=== PATIENT | female | born 1960 | race Caucasian/White ===

== ENCOUNTER 2016-11-13 09:08 | Day surgery (SDC) | payer OTHER ==
[2016-11-13] MEDS ORDERED: ACETAMINOPHEN 325 MG TABLET (FP) PO PRN (09:30)
[2016-11-13] MEDS ORDERED: FLURBIPROFEN 0.03% OPHTH SOLN 2.5 ML BOTTLE ONE (09:41)
[2016-11-13] MEDS ORDERED: PHENYLEPHRINE 2.5% OPHTH SOLN 15 ML BOTTLE ONE (09:42)
[2016-11-13] MEDS ORDERED: CYCLOPENTOLATE HCL 1% OPHTH SOLN 2 ML BOTTLE ONE (09:42)
[2016-11-13] MEDS ORDERED: TROPICAMIDE 1% OPHTH SOLN 15 ML BOTTLE ONE (09:42)
[2016-11-13] MEDS ORDERED: GENTAMICIN SULFATE 0.3% OPHTHALMIC (EYE DROPS) 5ML BOTTLE ONE (09:42)
[2016-11-13 10:09] VITALS: BMI 31.0
[2016-11-13] MEDS ORDERED: MIDAZOLAM HCL 2 MG/2 ML SINGLE DOSE VIAL ONE (10:52)
[2016-11-13] MEDS ORDERED: LIDOCAINE HCL/PF 2% SDV 5ML VIAL ONE (11:04)
[2016-11-13] MEDS ORDERED: LIDOCAINE HCL 2% JELLY 10 ML CARTRIDGE ONE (11:05)
[2016-11-13] MEDS ORDERED: BUPIVACAINE HCL/PF 0.5% (5MG/ML) 10 ML VIAL ONE (11:05)
[2016-11-13] MEDS ORDERED: POVIDONE-IODINE 5% OPHTHALMIC PREP 30 ML SOLUTION ONE (11:06)
[2016-11-13] MEDS ORDERED: PROPOFOL 20 ML ONE (11:24)
[2016-11-13] MEDS ORDERED: ACETYLCHOLINE 1:100 INTRA-OCUL 20 MG/2 ML KIT ONE (11:26)
[2016-11-13 12:31] VITALS: TEMP 98.3
[2016-11-13 13:13] VITALS: BP 150/83; PULSE 74
--- NOTE | 2016-11-13 18:29 | OP ---
DATE OF OPERATION: 11/13/2016 TITLE OF PROCEDURE: Planned extracapsular cataract extraction, phacoemulsification, insertion of posterior chamber lens implant, right eye. SURGEON: Vik Garnett M.D. [employer]: Vik Garnett M.D. COMPLICATIONS: None. PREOPERATIVE DIAGNOSIS: Cataract right eye. POSTOPERATIVE DIAGNOSIS: Cataract, right eye. ANESTHESIOLOGIST: Girma Edouard M.D. FINDINGS OF PROCEDURE: After the peribulbar block was given to the right eye in the operating room, the patient was prepped and draped in the usual manner to expose the right eye. Lid speculum was inserted after Tegaderm strips were placed on the lashes, and the microscope brought into position over the eye. Small incisions were made temporally, and then capsulorrhexis was performed under Viscoat without complication followed by hydrodissection followed by phacoemulsification of the entire nucleus in approximately 1-1/2 minute's time, and followed by cortical material with IA without complication, leaving intact posterior capsule and a red reflex present. Provisc was injected into the posterior chamber to deep in the posterior capsule, and the implant was inspected and found to be free of defects or flaws. Folded, placed into the Provisc filled cartridge, and the cartridge placed in the injector, and the implant was injected into the posterior chamber and nestled into place with a Sinskey hook, and the Provisc was aspirated out, replaced with Miochol, Miostat, and BSS, through small incisions 2 in number were then closed with saline injections into the cornea, and the wound was checked for leakage, none was found, and the intraocular pressure was normotensive. At this point, the implant was fixated, and the capsular bag centrally located with a round pupil intact posterior capsule and a red reflex present. Topical Betoptic S and Maxitrol ophthalmic suspensions were placed as was bacitracin, polymyxin B, ophthalmic ointment, and then the Tegaderm strips and the lid speculum were removed from the lids, the lids were closed, and a patch and shield placed on the eye. The patient was then discharged from the operating room into the recovery area in good condition, having tolerated the procedure well. Ramirez [id number]
== END 2016-11-13 13:00 | disposition home or self-care (01) ==
LOC: FASU 09:08
PROVIDERS: ATTEND Ophthalmology
PROC: 08RJ3JZ Replacement of Right Lens with Synthetic Substitute, Percutaneous Approach (ICD-10-PCS; principal; 2016-11-13 11:40)
DX: H26.8 Other specified cataract (principal)

== ENCOUNTER 2017-01-29 09:27 | Day surgery (SDC) | payer OTHER ==
[2017-01-22 10:22] VITALS: BMI 30.8
[2017-01-29] MEDS: PHENYLEPHRINE 2.5% OPHTH SOLN 15 ML BOTTLE ONE ×5 (10:10→10:30)
[2017-01-29] MEDS: CYCLOPENTOLATE HCL 1% OPHTH SOLN 2 ML BOTTLE ONE ×5 (10:10→10:30)
[2017-01-29] MEDS: TROPICAMIDE 1% OPHTH SOLN 15 ML BOTTLE ONE ×5 (10:10→10:30)
[2017-01-29] MEDS: FLURBIPROFEN 0.03% OPHTH SOLN 2.5 ML BOTTLE ONE ×5 (10:10→10:30)
[2017-01-29] MEDS: GENTAMICIN SULFATE 0.3% OPHTHALMIC (EYE DROPS) 5ML BOTTLE ONE ×5 (10:10→10:30)
[2017-01-29 12:15] VITALS: TEMP 98
[2017-01-29] MEDS ORDERED: ACETAMINOPHEN 325 MG TABLET (FP) PO PRN (12:21)
[2017-01-29 13:00] VITALS: BP 140/80; PULSE 64
--- NOTE | 2017-01-29 13:00 | OP ---
DATE OF OPERATION: 01/29/2017 PROCEDURE: Planned extracapsular cataract extraction, phacoemulsification, insertion of posterior chamber lens implant, left eye. SURGEON: Vik Georges MD ROVING HAULER SURGEON: Vik Georges MD COMPLICATIONS: None. PREOPERATIVE DIAGNOSIS: Cataract, left eye. POSTOPERATIVE DIAGNOSIS: Cataract, left eye. ANESTHESIOLOGIST: Leroy Arita MD FINDINGS AND PROCEDURES: After successful peribulbar anesthesia was given to the patient in the OR, patient was prepped in the usual manner, exposed the left eye. The lid speculum was inserted after Tegaderm strips were inserted, and the microscope brought into position over the left eye. Superior fornix-based flap was then fashioned for 10 mm using Emiliano scissors and 0.12 forceps, and hemostasis achieved with electrocautery. A limbal groove was fashioned for 3 mm with the crescent blade dissecting anterior into clear cornea. A 3-mm blade was used to enter the anterior chamber. Then, under Viscoat, a 360-degree anterior capsulotomy was performed and the leaflet removed from the eye. Phacoemulsification with a very soft nucleus was done in approximately 1.5 minutes time followed by irrigation and aspiration of all cortical material leaving an intact posterior capsule and a red reflex present. Provisc was injected into the posterior chamber and then deep in the posterior capsule, and then, the implant was inspected and found to be free of defects, debris, and flaws. It was folded, placed in the Provisc-filled cartridge. The cartridge was placed in the injector, and then, the implant was injected into the eye, such that the inferior haptic was in the inferior capsular bag, and the superior haptic in the superior capsular bag, and then rotated in the horizontal position with the Sinskey hook. The Provisc was aspirated out, replaced with Miochol and Miostat and BSS. The wound was closed with a single free tie of 10-0 Ethilon interrupted suture, and then, the conjunctival tenon flap was reapproximated. At this point, the implant was fixated in the capsular bag centrally located with the round pupil intact, posterior capsule and a red reflex present. Topical Betoptic S and Maxitrol ophthalmic suspensions were placed as was Bacitracin Polymyxin B ophthalmic ointment. The lid speculum and Tegaderm strips were removed from the lids. The lids were closed, and a patch and shield placed on the eye. Patient was then discharged from the operating room to the recovery area in good condition having tolerated the procedure well. VIK GEORGES M.D. [id number]
== END 2017-01-29 12:50 | disposition home or self-care (01) ==
LOC: FASU 09:27
PROVIDERS: ATTEND Ophthalmology
PROC: 08RK3JZ Replacement of Left Lens with Synthetic Substitute, Percutaneous Approach (ICD-10-PCS; principal; 2017-01-29 11:19)
DX: H26.8 Other specified cataract (principal)